=== PATIENT | female | born 1995 | race African-American/Black ===

== ENCOUNTER 2019-08-10 20:09 | Emergency (ER) | payer BC ==
[~2019-08-10] VITALS: Ht 154.9 cm; Wt 80.0 kg
[~2019-08-10 20:09] MED LIST: PRENATAL1 TA1 PO; PRENATAL1 TA7 PO
[2019-08-10 20:16] VITALS: BP 129/68; TEMP 97.7
[2019-08-10 22:20] VITALS: PULSE 102
== END 2019-08-10 22:20 | disposition home or self-care (01) ==
LOC: COL.ER 20:09
DX: F15.10 Other stimulant abuse, uncomplicated (principal); Z88.0 Allergy status to penicillin

== ENCOUNTER 2020-04-16 23:42 | Emergency (ER) | payer BC ==
[~2020-04-16] VITALS: Ht 152.4 cm; Wt 75.0 kg
[2020-04-16 23:53] VITALS: BP 110/77; TEMP 98.7
[2020-04-17 00:22] LABS: COLLECTION METHOD CLEAN CATCH
[2020-04-17 00:29] LABS: MUCOUS Present /lpf; PH 5 (5-8); URINE APPEARANCE Cloudy; URINE BACTERIA Rare /hpf; URINE BILIRUBIN Negative (NEGATIVE); URINE BLOOD Negative (NEGATIVE); URINE COLOR Yellow; URINE GLUCOSE Negative (NEGATIVE); URINE KETONE Negative (NEGATIVE); URINE LEUKOCYTE ESTERASE Negative (NEGATIVE); URINE NITRATE Negative (NEGATIVE); URINE PROTEIN(semi-quant) 1+ (NEGATIVE); URINE RBC 0-2 /hpf; URINE UROBILINOGEN >=4.0 mg/dL (NEGATIVE)
[2020-04-17 02:33] VITALS: PULSE 99
== END 2020-04-17 02:33 | disposition home or self-care (01) ==
LOC: COL.ER 23:42
PROVIDERS: Emergency Medicine
DX: O26.891 Other specified pregnancy related conditions, first trimester (principal); R10.2 Pelvic and perineal pain; Z3A.13 13 weeks gestation of pregnancy

== ENCOUNTER → 2020-05-23 | Outpatient (CLI) | payer BC | LOC: ZCOL.LAB 17:56 | DX: Z20.828 Contact with and (suspected) exposure to other viral communicable diseases (principal) ==

== ENCOUNTER 2020-07-19 11:45 | Outpatient (CLI) | payer BC ==
[~2020-07-19] VITALS: Ht 154.9 cm; Wt 74.1 kg
[2020-07-19 11:30] VITALS: BP 124/81; PULSE 92; TEMP 98.1
[2020-07-19 12:17] VITALS: BP 124/81; PULSE 92; TEMP 98.1
--- NOTE | 2020-07-19 12:32 | NUR ---
[id number] PATIENT HERE FROM HOME. COMPLAINTS OF NOT FEELING BABY MOVE AND HAD SOME LEAKING OF FLUID ON . EFM ON FHT 130 BABY VERY ACTIVE. NO CONTRACTIONS NOTED. SVE CLOSED THICK HIGH. AMNIOTRACE IS NEGATIVE.. ASSESSMENT COMPLETED.
[2020-07-19 12:36] VITALS: PULSE 78
--- NOTE | 2020-07-19 12:36 | NUR ---
4633 DR DOSHI CALLED AND UPDATED. ORDERS TO DISMISS PATIENT TO HOME. ALL DISCHARGE INSTRUCTIONS GIVEN WITH VERBAL UNDERSTANDING NOTED.
== END 2020-07-19 12:42 | disposition home or self-care (01) ==
LOC: LDRO 11:45
DX: O36.8120 Decreased fetal movements, second trimester, not applicable or unspecified (principal); Z3A.26 26 weeks gestation of pregnancy

== ENCOUNTER 2020-09-08 22:21 | Outpatient (CLI) | payer BC ==
[~2020-09-08] VITALS: Ht 154.9 cm; Wt 80.5 kg
--- NOTE | 2020-09-08 22:30 | NUR ---
Ambulatory to unit for assessment, accompanied by mother. Oriented to room, monitor, plan of care. Questions invited and answered. Pt states "Oh, I've been here before" Pt reports "I think my water broke. I was going to the bathroom and when I stood up it just kept going"
--- NOTE | 2020-09-08 22:45 | NUR ---
SVE, amniosure obtained, amniotrace done, no fluid noted, no fluid illicited with pressure against presenting part. No vaginal bleeding. SVE closed. Pt tolerates procedure fair.
[2020-09-08 23:00] VITALS: BP 132/78; PULSE 104; TEMP 97.8
--- NOTE | 2020-09-08 23:50 | NUR ---
discharge instructions reviewed with pt. Questions invited and answered. Verbalizes undersanding or need to return to [facility] 09/09/20 @ 1500 for 2nd Betamethasone injection. Ambulatory off unit.
== END 2020-09-08 23:50 | disposition home or self-care (01) ==
LOC: LDRO 22:21 → LDR 22:57 → LDRO 23:50
DX: Z34.93 Encounter for supervision of normal pregnancy, unspecified, third trimester (principal); Z3A.33 33 weeks gestation of pregnancy
CPT/HCPCS: OP

== ENCOUNTER 2020-09-12 12:51 | Outpatient (CLI) | payer MEDICAID ==
[~2020-09-12] VITALS: Ht 154.9 cm; Wt 81.8 kg
--- NOTE | 2020-09-12 13:23 | NUR ---
1305 PATIENT HERE FROM HOME AFTER HAVING A ULTRASOUND AT THE OFFICE THIS MORNING, AND CONSULTING WITH M VIA TELEHEALTH. ORDERS TO TRANSFER PATIENT TO [facility] PER DR. DOSHI AT THIS TIME. EFM ON FHT 160 WITH NO ACCELERATIONS NOTED AT THIS TIME. NO CONTRACTIONS ON MONITOR OR FELT BY PATIENT. ASSESSMENT COMPLETED AT THIS TIME. IV STARTED IN RIGHT FOREARM AND LR STARTED PER ORDER. TRANSFER CONSENT SIGNED BY PATIENT AFTER DR DOSHI DISCUSSES ALL OPTIONS WITH PATIENT AND FRIEND WITH VERBAL UNDERSTANDING
[2020-09-12 13:30] VITALS: BP 125/73; PULSE 84; TEMP 98.1
--- NOTE | 2020-09-12 13:41 | NUR ---
1330 FHT 160 WITH OCCASIONAL VARIABLES DECELS NOTED. DR DOSHI AWARE AND COMMUNICATION WITH DR. GONZALEZ. NO CHANGES AT THIS TIME. PATIENT STATES HAD JUST ATE FULL MEAL ON WAY TO HOSPITAL. DENIES NEEDS
[2020-09-12 14:03] VITALS: BP 124/69
--- NOTE | 2020-09-12 14:17 | NUR ---
1415 PATIENT UP TO BATHROOM. TOLERATES WELL
[2020-09-12 15:23] VITALS: BP 148/101; PULSE 67
--- NOTE | 2020-09-12 15:24 | NUR ---
[facility].FHT 165. ABSENT VARIABILITY NOTED. DAVID PAIZ RN AT BEDSIDE. SONO DONE BY DAVID FULTON AND CALLED REPORT TO DR GONZALEZ. ALL REPORT GIVEN TO TRANSPORT TEAM AT THIS TIME WITH VERBAL UNDERSTANDING NOTED. IVF HEPLOCKED, AND PATIENT TRANSFERRED TO TRANSPORT COT AND DISMISSED WITH TEAM AT THIS TIME.
== END 2020-09-12 15:15 | disposition short-term general hospital (02) ==
LOC: LDRO 12:51 → LDR 13:09 → LDRO 15:15
DX: Z34.93 Encounter for supervision of normal pregnancy, unspecified, third trimester (principal); Z3A.33 33 weeks gestation of pregnancy; Z20.822 Contact with and (suspected) exposure to COVID-19
CPT/HCPCS: OP; J7120

== ENCOUNTER 2023-10-28 23:53 | Emergency (ER) | payer OTHER ==
[~2023-10-28] VITALS: Ht 154.9 cm; Wt 79.1 kg
[2023-10-28 23:57] VITALS: TEMP 98.4
[2023-10-29 00:31] LABS: BASO % 0.4 % (0.0-2.0); EOS # 0.1 K/mm3 (0.0-0.7); EOS % 1.1 % (0.0-4.0); GRAN # 6.5 K/mm3 (1.4-6.5); GRAN % 67.5 % (42.2-75.2); HEMATOCRIT 43.7 % (37.0-47.0); HEMOGLOBIN 13.8 g/dl (12.5-16.0); LYMPH # 2.3 K/mm3 (1.2-3.4); MEAN CELL VOLUME 84 fl (80.0-100.0); MEAN CORPUSCULAR HEMOGLOBIN 27 pg (27-31); MEAN CORPUSCULAR HGB CONC 32 g/dl (33.0-37.0); MEAN PLATELET VOLUME 10.1 fl (7.4-10.4); MONO # 0.7 K/mm3 (0.1-0.6); MONO % 6.8 % (1.7-9.3); PLATELET COUNT 316 K/mm3 (130-400); REDCELL DISTRIBUTION WIDTH-CV 15.1 % (11.5-14.5)
[2023-10-29 00:44] LABS: ALANINE AMINOTRANSFERASE 14 U/L (0-55); ALBUMIN 3.3 g/dL (3.5-5.0); ALKALINE PHOSPHATASE 61 U/L (40-150); ANION GAP 10 mmol/L (7-16); AST,SGOT 18 U/L (5-34); BILIRUBIN,TOTAL 0.3 mg/dL (0.2-1.2); BLOOD UREA NITROGEN 12 mg/dL (7-19); CALCIUM 9.3 mg/dL (8.4-10.2); CHLORIDE 105 mEq/L (98-107); CREATININE, serum 0.83 mg/dL (0.57-1.11); GLUCOSE 115 mg/dL (70-99); SODIUM 138 mEq/L (136-145)
[2023-10-29 00:50] LABS: TROPONIN-I < 0.010 ng/mL (0.00-0.033)
[2023-10-29] MEDS ORDERED: NS 50 ML IV SCH (00:59)
[2023-10-29] MEDS ORDERED: Iohexol 350 - 100 ML VIAL IV ONE (00:59)
[2023-10-29 02:28] VITALS: BP 119/79; PULSE 99
== END 2023-10-29 02:28 ==
LOC: COL.ER 23:53
PROVIDERS: Personal Emergency Response Attendant
DX: R07.89 Other chest pain (principal); R00.0 Tachycardia, unspecified; R79.89 Other specified abnormal findings of blood chemistry
CPT/HCPCS: Q9967